=== PATIENT | female | born 1990 | race African-American/Black ===

== ENCOUNTER 2024-04-21 15:52 | Emergency (ER) | payer MEDICARE, SELFPAY ==
[2024-04-21 16:06] VITALS: BP 125/75; PULSE 86; RESP 16; TEMP 35.9; O2SAT 99
--- NOTE | 2024-04-21 16:26 | ED.URI ---
HPI - URI/Sore Throat General Chief Complaint: Upper Respiratory Infection Stated Complaint: congested Time Seen by Provider: 04/21/24 16:26 Source: patient, RN notes reviewed and old records reviewed Mode of arrival: ambulatory Limitations: no limitations History of Present Illness HPI Narrative: Patient presents with complaints of runny nose, nasal congestion, sneezing, cough. She reports symptoms have been present for about 1 week. She is concerned that she has something that is contagious. She is requesting testing for COVID, flu, strep. She does however, admit that she does typically experience allergy symptoms in the fall. She has not been taking any allergy medication Related Data Allergies Allergy/AdvReac Type Severity Reaction Status Date / Time No Known Allergies Allergy Unverified 10/16/18 16:46 Review of Systems Review of Systems: All systems reviewed & are unremarkable except as noted in HPI and below Constitutional: Constitutional: Reports no additional constitutional complaints ENT: Reports system reviewed and no additional complaints, except as documented, Reports as per HPI, Reports nasal congestion and Reports nasal discharge Cardiovascular: Cardiovascular: Reports no additional cardiovascular complaints Respiratory: Respiratory: Reports no additional respiratory complaints and Reports cough Gastrointestinal: Gastrointestinal: Reports no additional gastrointestinal complaints Allergic/Immunologic: Allergic/Immunologic: Reports as per HPI [facility] Comments At the time of my signature, I reviewed and agree with the nursing past medical, surgical, social, and family history. There is no relevant family history pertinent to the patient complaint. Exam Const: General: cooperative, no acute distress, alert and awake Orientation/consciousness: oriented to person, oriented to place and oriented to time HENMT: Head: normal to inspection Ears: TM's normal bilaterally Mouth: Yes moist mucous membranes Throat: posterior oropharynx abnormal cobblestoning and erythema and postnasal drainage Resp: Effort & Inspection: normal respiratory effort and able to speak in complete sentences Auscultation: clear to auscultation bilaterally, no crackles, no rales, no rhonchi and no wheezes Cardio: Palpation: normal PMI Rate: regular rate Rhythm: regular rhythm Heart sounds: S1 normal heart sound present and S2 normal heart sound present Neuro: General: oriented to person, oriented to place and oriented to time Cranial nerves: Yes CN's II-XII intact bilaterally Psych: Appearance: grossly normal Thought process: Normal thought process present Insight: Good insight present (Psych) Judgement: Good judgement present (Psych) Course Course Level of Care: Express Care Visit Vital Signs Vital signs: Vital Signs Temperature 96.7 F L 04/21/24 16:06 Pulse Rate 86 04/21/24 16:06 Respiratory Rate 16 04/21/24 16:06 Blood Pressure 125/75 04/21/24 16:06 Pulse Oximetry 99 04/21/24 16:06 Oxygen Delivery Room Air 04/21/24 16:06 Temperature 96.7 F L 04/21/24 16:06 Pulse Rate 86 04/21/24 16:06 Respiratory Rate 16 04/21/24 16:06 Blood Pressure 125/75 04/21/24 16:06 Pulse Oximetry 99 04/21/24 16:06 Oxygen Delivery Room Air 04/21/24 16:06 Reviewed MDM - URI/Sore Throat MDM Narrative Medical decision making narrative: Patient reports that she typically gets allergy symptoms around this time of year. Negative flu, negative COVID, negative strep. Culture pending. Symptoms are likely due to allergies, start Claritin. Follow up primary care provider. Emergency department for any new or worse symptoms. Discharge instructions reviewed with patient, as well as provided in writing per nursing staff. The instructions also include specific and strict return/GO TO THE ER as well as f/u information. All questions have been answered, and the patient deny any further questions with dischar
[2024-04-21 16:44] LABS: EDCOVIDSCREEN Negative (Negative); EDINFLUASCREEN Negative (Negative); EDINFLUBSCREEN Negative (Negative); EDSTREPNEGPOS1 Negative (Negative)
== END 2024-04-21 17:02 | disposition home or self-care (01) ==
PROVIDERS: Emergency Provider Nurse Practitioner Family
DX: T78.40XA Allergy, unspecified, initial encounter (principal); Z20.822 Contact with and (suspected) exposure to COVID-19
CPT/HCPCS: 87081; 87426; 87804; 87880; 99213; G0463